=== PATIENT | female | born 2000 | race Caucasian/White ===

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

== ENCOUNTER → 2020-01-12 | Emergency (ER) | payer BC ==
[~2020-01-12] MED LIST: ERGO500027 PO
== END ==
LOC: ER 11:21
DX: J02.9 Acute pharyngitis, unspecified (principal); Z53.21 Procedure and treatment not carried out due to patient leaving prior to being seen by health care provider

== ENCOUNTER 2020-03-31 09:54 | Emergency (ER) | payer BC ==
[~2020-03-31] VITALS: Ht 152.4 cm; Wt 66.0 kg
[2020-03-31 10:34] VITALS: BP 114/58
[2020-03-31 11:11] LABS: BILIRUBIN,URINE NEGATIVE (NEG); CLARITY,URINE CLEAR; COLOR,URINE YELLOW; NITRITE,URINE NEGATIVE (NEG); PH,URINE 5.5 (<5.0-8.0); PROTEIN,URINE 100 mg/dL (NEG-TRACE); UROBILINOGEN,URINE 0.2 mg/dL (0.2 mg/dL)
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
[2020-03-31 11:45] LABS: BACTERIA,URINE FEW /HPF (0-FEW); RBC,URINE 20-40 /HPF (0-2); WBC,URINE >40 /HPF (0-4)
[2020-03-31] MEDS ORDERED: SULF1TAB24 PO (12:36)
== END 2020-03-31 12:21 | disposition home or self-care (01) ==
LOC: ER 09:54
DX: S30.814A Abrasion of vagina and vulva, initial encounter (principal); N39.0 Urinary tract infection, site not specified; R30.0 Dysuria; Z90.89 Acquired absence of other organs; X58.XXXA Exposure to other specified factors, initial encounter; Y93.89 Activity, other specified; Y92.89 Other specified places as the place of occurrence of the external cause; Y99.8 Other external cause status
CPT/HCPCS: 81001; 81025; 87086; 87491; 87591; 99284